=== PATIENT | female | born 1935 | race Native Hawaiian/Other Pacific Islander ===

== ENCOUNTER 2016-08-08 15:33 | Emergency (ER) | payer MEDICARE, OTHER ==
[~2016-08-08] VITALS: Ht 149.9 cm; Wt 44.7 kg
[2016-08-08 17:25] LABS: BASOPHILS % (AUTO) 1 % (0-2); EOSINOPHILS # (AUTO) 0.5 10^3uL; EOSINOPHILS % (AUTO) 5 % (0-4); LYMPHOCYTES # (AUTO) 2.2 X10^3; MEAN CORPUSCULAR VOLUME 90 FL (80-100); MONOCYTES # (AUTO) 0.6 X10^3; MONOCYTES % (AUTO) 7 % (3-11); NEUTROPHILS # (AUTO) 6.2 X10^3; NEUTROPHILS % (AUTO) 65 % (51-67); PLATELET COUNT 182 10^3uL (150-450); WHITE BLOOD COUNT 9.57 10^3uL (4.0-11.0)
[2016-08-08] MEDS ORDERED: SODIUM CHLORIDE FLUSH 3 ML SYR IV PRN (17:25)
[2016-08-08] MEDS ORDERED: SODIUM CHLORIDE FLUSH 10 ML SYR IV PRN (17:25)
[2016-08-08] MEDS ORDERED: LABETALOL HCL 20 MG/4 ML VIAL IV ONE ×4 (17:25→19:15)
[2016-08-08 17:26] LABS: MEAN CORPUSCULAR HEMOGLOBIN 31.5 PG (26.0-34.0)
[2016-08-08 17:32] LABS: ALBUMIN 3.7 g/dL (3.4-5.0); ANION GAP 15.4 MEQ/L (3-15); CALCULATED IONIZED CALCIUM 4.4 mg/dL (3.8-4.6); TOTAL PROTEIN 6.9 g/dL (6.4-8.5)
[2016-08-08] MEDS ORDERED: LABETALOL HCL 100 MG/20 ML VIAL IV ONE (18:39)
--- NOTE | 2016-08-08 19:33 | NUR ---
REPORT TAKEN FROM [facility]
[2016-08-08] MEDS ORDERED: cloNIDine 0.1 MG (CATAPRES) TAB PO ONE (19:35)
[2016-08-08] MEDS ORDERED: INSULIN LISPRO 1 UNIT/0.01 ML (HUMALOG) DOSE SC ONE (19:55)
[2016-08-08] MEDS ORDERED: INSULIN GLARGINE 1 UNIT/0.01ML (LANTUS) DOSE SC ONE (19:55)
[2016-08-08 22:20] VITALS: BP 182/41
== END 2016-08-08 22:22 | disposition home or self-care (01) ==
LOC: ED 15:34
DX: I10 Essential (primary) hypertension (principal)
CPT/HCPCS: 36415; 71010; 80053; 84484; 85025; 93005; 96374; 96376; 99284; A9270; J1815; J3490; 93010